=== PATIENT | female | born 1980 | race Two or more races ===

== ENCOUNTER 2016-10-16 19:11 | Emergency (ER) | payer OTHER ==
[2016-10-16] MEDS ORDERED: KETOROLAC TROMETHAMINE 30 MG/ML 1 ML VIAL ONE (20:02)
[2016-10-16] MEDS ORDERED: DEXAMETHASONE SOD PHOS 10 MG/1 ML VIAL ONE (20:02)
[2016-10-16] MEDS ORDERED: PENICILLIN G BENZATHINE 1.2 MMU/2 ML SYRINGE IM ONE ×2 (20:37→20:38)
== END 2016-10-16 21:00 | disposition home or self-care (01) ==
LOC: ED 19:11
DX: J02.9 Acute pharyngitis, unspecified (principal); R51 Headache; E03.9 Hypothyroidism, unspecified
CPT/HCPCS: 87880; 99283 ×2; 96372 ×2; J1100; J1885; J0561 ×2